=== PATIENT | female | born 1965 | race Caucasian/White ===

== ENCOUNTER 2016-11-14 17:44 | Inpatient (IN) | payer BC ==
[2016-11-14] MEDS ORDERED: Ondansetron 4 MG/2 ML SDV IVPUSH ONE (19:43)
[2016-11-14] MEDS ORDERED: HYDROmorphone 1 MG/ML Syringe IVPUSH ONE ×3 (19:43→23:42)
[2016-11-14] MEDS ORDERED: Sodium Chloride 0.9% 1,000 ML IV SCH (19:45)
--- NOTE | 2016-11-14 20:50 | EDM.PDOC ---
ED HPI GENERAL MEDICAL PROBLEM - General Chief Complaint: Abdominal Pain Stated Complaint: ABDOMINAL PAIN Time Seen by Provider: 11/14/16 19:28 Source of Information: Reports: Patient, RN Notes Reviewed History Limitations: Reports: No Limitations - History of Present Illness INITIAL COMMENTS - FREE TEXT/NARRATIVE: The patient states that she developed right upper quadrant abdominal pain around 11:00 this afternoon, which developed into entire-abdomen pain around 15: 00. She noticed that the pain was radiating to her right scapular area around 18 :00. She describes the pain as sharp. It has been waxing and waning. Initially there were no modifiers, but she later noticed that she felt better if she palpated her right upper quadrant. She has had nausea and vomiting. No urinary symptoms. No fever. No prior similar symptoms. The patient states that she has been constipated for the past 3 days. She took a probiotic yesterday afternoon and again this morning, a few hours before her right upper quadrant abdominal pain began. She also took a laxative last night. She states that she did have a bowel movement this morning, prior to the pain beginning at 11:00. She states that she also took a saline enema this afternoon , after her pain began, but this did not alter her pain. She has not tried any other treatments. The patient does not have a PCP. Abdominal Pain Score (Numeric/FACES): 10 - Related Data Allergies Allergy/AdvReac Type Severity Reaction Status Date / Time No Known Allergies Allergy Verified 11/14/16 17:53 Home Meds: Home Meds . [No Known Home Meds] 11/14/16 [History] Past Medical History Psychiatric History: Reports: Depression - Past Surgical History HEENT Surgical History: Reports: Oral Surgery (Steger teeth extraction) Female Surgical History: Reports: Breast Implant (bilateral) Social & Family History - Family History Family Medical History: Noncontributory - Tobacco Use Smoking Status *Q: Light Tobacco Smoker Years of Tobacco use: 37 Packs/Tins Daily: 0.1 Packs/Tins Daily Comment: down from 1 pack per week - Caffeine Use Caffeine Use: Reports: Coffee, Soda - Alcohol Use Days Per Week of Alcohol Use: 2 Number of Drinks Per Day: 5 Total Drinks Per Week: 10 Alcohol Use Frequency: Daily - Recreational Drug Use Recreational Drug Use: No - Living Situation & Occupation Living situation: Reports: , with Spouse, with Family (1 son) 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) ED ROS GENERAL - Review of Systems Review Of Systems: See Below Constitutional: Reports: No Symptoms HEENT: Reports: No Symptoms Respiratory: Reports: No Symptoms Cardiovascular: Reports: No Symptoms Endocrine: Reports: No Symptoms GI/Abdominal: Reports: Constipation (chronic) : Reports: No Symptoms Musculoskeletal: Reports: No Symptoms Skin: Reports: No Symptoms Neurological: Reports: No Symptoms Psychiatric: Reports: No Symptoms Hematologic/Lymphatic: Reports: No Symptoms Immunologic: Reports: No Symptoms ED EXAM, GI/ABD - Physical Exam Exam: See Below Exam Limited By: No Limitations General Appearance: Alert, WD/WN, Moderate Distress (quite uncomfortable) Eyes: Bilateral: Normal Appearance, EOMI Ears: Normal External Exam, Hearing Grossly Normal Nose: Normal Inspection, No Blood Throat/Mouth: Normal Inspection, Normal Lips, Normal Voice, No Airway Compromise Head: Atraumatic, Normocephalic Neck: Normal Inspection, Full Range of Motion Respiratory/Chest: No Respiratory Distress, Lungs Clear, Normal Breath Sounds, No Accessory Muscle Use Cardiovascular: Normal Peripheral Pulses, Regular Rate, Rhythm, No Gallop, No JVD, No Murmur, No Rub GI/Abdominal Exam: Normal Bowel Sounds, Soft, No Organomegaly, No Distention, No Abnormal Bruit, No Mass, Tender (Generalized, but more tender in the right upper quadrant than elsewhere. Solis sign positive.). No: Guarding, Rebound (Female) Exam: Deferred Back Exam: Normal Inspection, Full Range of Motion, CVA Tenderness (L) ( percussion induces abdominal pain), CVA Tenderness (R) (percussion induces abdominal pain) Extremities: Normal Inspection, Normal Range of Motion, No Pedal Edema, Normal Capillary Refill Neurological: Alert, Oriented, Normal Cognition, No Motor/Sensory Deficits Psychiatric: Normal Affect Skin Exam: Warm, Dry, Intact, Normal Color, No Rash Course - Vital Signs Last Recorded V/S: Last Vital Signs Temp 36.6 C 11/14/16 17:53 Pulse 83 11/14/16 17:53 Resp 19 11/14/16 17:53 BP 134/79 11/14/16 17:53 Pulse Ox 100 11/14/16 17:53 - Orders/Labs/Meds Orders: Active Orders 24 hr Category Date Time Status Abdomen 2V AP Flat Upright [CR] Stat Exams 11/14/16 18:42 Taken Abdomen Ltd [US] Stat Exams 11/14/16 19:46 Taken Abdomen Pelvis w Cont [CT] Stat Exams 11/14/16 19:43 Taken CULTURE URINE [RM] Stat Lab 11/14/16 21:35 Received Sodium Chloride 0.9% [Normal Saline] 1,000 ml Med 11/14/16 19:45 Active IV ASDIRECTED Sodium Chloride 0.9% [Normal Saline] 1,000 ml Med 11/14/16 23:45 Active IV ASDIRECTED Sodium Chloride 0.9% [Saline Flush] Med 11/14/16 21:53 Active 10 ml FLUSH ONETIME PRN Medication Orders Sodium Chloride (Normal Saline) 1,000 mls @ 150 mls/hr IV ASDIRECTED NAOMY Last Admin: 11/14/16 19:56 Dose: 150 mls/hr Sodium Chloride (Normal Saline) 1,000 mls @ 100 mls/hr IV ASDIRECTED NAOMY Sodium Chloride (Saline Flush) 10 ml FLUSH ONETIME PRN PRN Reason: IV FLUSH Last Admin: 11/14/16 22:22 Dose: 10 ml Labs: Laboratory Tests 11/14/16 11/14/16 11/14/16 Range/Units 18:45 18:45 21:35 WBC 7.98 (3.98-10.04) K/mm3 RBC 4.51 (3.98-5.22) M/mm3 Hgb 14.3 (11.2-15.7) gm/L Hct 41.9 (34.1-44.9) % MCV 92.9 (79.4-94.8) fl MCH 31.7 (25.6-32.2) pg MCHC 34.1 (32.2-35.5) g/dl RDW Std Deviation 42.6 (36.4-46.3) fL Plt Count 217 (182-369) K/mm3 MPV 11.4 (9.4-12.3) fl Neutrophils % (Manual) 86 H (40-60) % Band Neutrophils % 0 (0-10) % Lymphocytes % (Manual) 13 L (20-40) % Atypical Lymphs % 0 % Monocytes % (Manual) 1 L (2-10) % Eosinophils % (Manual) 0 L (0.7-5.8) % Basophils % (Manual) 0 L (0.1-1.2) Platelet Estimate Adequate RBC Morph Comment Normal Sodium 139 (136-145) mEq/L Potassium 4.3 (3.5-5.1) mEq/L Chloride 105 (98-107) mEq/L Carbon Dioxide 26 (21-32) mEq/L Anion Gap 12.3 (5-15) BUN 10 (7-18) mg/dL Creatinine 0.7 (0.55-1.02) mg/dL Est Cr Clr Drug Dosing 89.01 mL/min Estimated GFR (MDRD) > 60 (>60) mL/min BUN/Creatinine Ratio 14.3 (14-18) Glucose 104 (74-106) mg/dL Calcium 9.2 (8.5-10.1) mg/dL Total Bilirubin 0.4 (0.2-1.0) mg/dL AST 21 (15-37) U/L ALT 24 (14-59) U/L Alkaline Phosphatase 76 (46-116) U/L Total Protein 7.3 (6.4-8.2) g/dl Albumin 3.8 (3.4-5.0) g/dl Globulin 3.5 gm/dL Albumin/Globulin Ratio 1.1 (1-2) Lipase 109 (73-393) U/L Urine Color (Yellow) Urine Appearance (Clear) Urine pH (5.0-8.0) Ur Specific [place] (1.005-1.030) Urine Protein (Negative) Urine Glucose (UA) (Negative) Urine Ketones (Negative) Urine Occult Blood (Negative) Urine Nitrite (Negative) Urine Bilirubin (Negative) Urine Urobilinogen (0.2-1.0) Ur Leukocyte Esterase (Negative) Urine RBC (0-5) /hpf Urine WBC (0-5) /hpf Ur Epithelial Cells (0-5) /hpf Urine Bacteria (FEW) /hpf Urine Mucus (FEW) /hpf Urine HCG, Qual Negative (NEGATIVE) 11/14/16 Range/Units 21:35 WBC (3.98-10.04) K/mm3 RBC (3.98-5.22) M/mm3 Hgb (11.2-15.7) gm/L Hct (34.1-44.9) % MCV (79.4-94.8) fl MCH (25.6-32.2) pg MCHC (32.2-35.5) g/dl RDW Std Deviation (36.4-46.3) fL Plt Count (182-369) K/mm3 MPV (9.4-12.3) fl Neutrophils % (Manual) (40-60) % Band Neutrophils % (0-10) % Lymphocytes % (Manual) (20-40) % Atypical Lymphs % % Monocytes % (Manual) (2-10) % Eosinophils % (Manual) (0.7-5.8) % Basophils % (Manual) (0.1-1.2) Platelet Estimate RBC Morph Comment Sodium (136-145) mEq/L Potassium (3.5-5.1) mEq/L Chloride (98-107) mEq/L Carbon Dioxide (21-32) mEq/L Anion Gap (5-15) BUN (7-18) mg/dL Creatinine (0.55-1.02) mg/dL Est Cr Clr Drug Dosing mL/min Estimated GFR (MDRD) (>60) mL/min BUN/Creatinine Ratio (14-18) Glucose (74-106) mg/dL Calcium (8.5-10.1) mg/dL Total Bilirubin (0.2-1.0) mg/dL AST (15-37) U/L ALT (14-59) U/L Alkaline Phosphatase (46-116) U/L Total Protein (6.4-8.2) g/dl Albumin (3.4-5.0) g/dl Globulin gm/dL Albumin/Globulin Ratio (1-2) Lipase (73-393) U/L Urine Color Yellow (Yellow) Urine Appearance Clear (Clear) Urine pH 7.5 (5.0-8.0) Ur Specific [place] 1.025 (1.005-1.030) Urine Protein 1+ H (Negative) Urine Glucose (UA) Negative (Negative) Urine Ketones 2+ H (Negative) Urine Occult Blood Trace-intact H (Negative) Urine Nitrite Negative (Negative) Urine Bilirubin Negative (Negative) Urine Urobilinogen 0.2 (0.2-1.0) Ur Leukocyte Esterase Trace H (Negative) Urine RBC 0-5 (0-5) /hpf Urine WBC 10-20 H (0-5) /hpf Ur Epithelial Cells 5-10 H (0-5) /hpf Urine Bacteria Few (FEW) /hpf Urine Mucus Few (FEW) /hpf Urine HCG, Qual (NEGATIVE) Meds: Medications Generic Name Dose Route Start Last Admin Trade Name Freq PRN Reason Stop Dose Admin Sodium Chloride 1,000 mls @ 150 mls/hr 11/14/16 19:45 11/14/16 19:56 Normal Saline IV 150 mls/hr ASDIRECTED NAOMY Administration Sodium Chloride 1,000 mls @ 100 mls/hr 11/14/16 23:45 Normal Saline IV ASDIRECTED NAOMY Sodium Chloride 10 ml 11/14/16 21:53 11/14/16 22:22 Saline Flush FLUSH 10 ml ONETIME PRN Administration IV FLUSH Discontinued Medications Generic Name Dose Route Start Last Admin Trade Name Spq PRN Reason Stop Dose Admin Diatrizoate Meglum/Diatrizoate Sod 90 ml 11/14/16 21:53 11/14/16 22:21 Gastrografin 37% PO 11/14/16 21:54 90 ml ONETIME ONE Administration Hydromorphone HCl 1 mg 11/14/16 19:43 11/14/16 19:58 Dilaudid IVPUSH 11/14/16 19:44 1 mg ONETIME ONE Administration Hydromorphone HCl 1 mg 11/14/16 21:45 11/14/16 21:50 Dilaudid IVPUSH 11/14/16 21:46 1 mg ONETIME ONE Administration Hydromorphone HCl 1 mg 11/14/16 23:42 11/14/16 23:48 Dilaudid IVPUSH 11/14/16 23:43 1 mg ONETIME ONE Administration Cefoxitin Sodium 2 gm/ Premix 50 mls @ 100 mls/hr 11/14/16 23:42 11/14/16 23: 50 IV 11/15/16 00:11 100 mls/hr ONETIME ONE Administration Iopamidol 120 ml 11/14/16 21:53 11/14/16 22:21 Isovue-300 (61%) IVPUSH 11/14/16 21:54 125 ml ONETIME ONE Administration Ondansetron HCl 4 mg 11/14/16 19:43 11/14/16 19:57 Zofran IVPUSH 11/14/16 19:44 4 mg ONETIME ONE Administration - Re-Assessments/Exams Free Text/Narrative Re-Assessment/Exam: 11/14/16 20:49 2 view radiographs of the abdomen, upright, appears to demonstrate a nonspecific bowel gas pattern. No free air. An IUD is noted tilting to the right. No other abnormality identified. Formal read per the radiologist pending. 11/14/16 21:48 Ultrasound of the right upper quadrant is read by [facility] as "No acute findings." Specifically, they indicate: Gallbladder: Unremarkable. No gallstones. Common bile duct: Unremarkable as visualized. No stones. No dilation. 11/14/16 22:21 A urine by [facility] had been ordered, however, the patient provided a clean catch. It is remarkable for 10-20 WBCs, few bacteria, 5-10 epithelial cells, trace leukocyte esterase, and nitrite negative. Clinically, I do not suspect a UTI, however, this is urinalysis is indeterminate. I have ordered a urine culture, but I am not going to start the patient on an antibiotic based on this finding alone. The CT scan of the abdomen and pelvis is still pending. 11/14/16 23:04 CT of the abdomen and pelvis with oral and IV contrast is read by [facility] as: Lower thorax: 6 mm circumscribed right lower lobe pulmonary nodule. Visualized portion of the patient's right breast implant appears collapsed. IMPRESSION: 1. Fibroid uterus 2. The patient's cecum is gas-filled and in a epigastric location and the cecal tip projecting towards the left upper quadrant, but at this time there is no evidence of volvulus or bascule. 3. 6 mm circumscribed right lower lobe pulmonary nodule. 4. Findings suspicious for right breast implant rupture but the implant is not entirely visualized on this study. 5. Hepatic and renal cysts. 11/14/16 23:18 The above was discussed with the patient. She states that her breast implants placed approximately 10 years ago, in [place]. She noticed right breast deflation approximately 3-4 weeks ago, and saw a plastic surgeon in [place] about that time. The plastic surgeon recommended removal of both implants with a breast lift, versus replacing both. She was informed that there was no gates to make a decision. Leakage from a saline breast implant does not cause significant issues, as the saline is absorbed by the body. This would indicate that the patient's pain is not related to the breast implant deflation. I am more concerned about the epigastric location of the cecum. 11/14/16 23:[address] Roberts at 23:23. He is recommending that we admit the patient under his care. The patient may receive pain medication and Zofran as needed. He would like the patient to receive Mefoxin 2 g Q6 hrs, and an upright abdominal film in the morning. 11/14/16 23:39 The above plan was discussed with the patient. She is agreeable to being admitted. I will write bridge orders. Departure - Departure Time of Disposition: 23:39 Disposition: Admitted As Inpatient 66 Condition: Fair Clinical Impression: Abdominal pain of unknown etiology - Discharge Information - My Orders Last 24 Hours: My Active Orders 11/14/16 19:43 Abdomen Pelvis w Cont [CT] Stat 11/14/16 19:45 Sodium Chloride 0.9% [Normal Saline] 1,000 ml IV ASDIRECTED 11/14/16 19:46 Abdomen Ltd [US] Stat 11/14/16 21:35 CULTURE URINE [RM] Stat 11/14/16 21:53 Sodium Chloride 0.9% [Saline Flush] 10 ml FLUSH ONETIME PRN 11/14/16 23:45 Sodium Chloride 0.9% [Normal Saline] 1,000 ml IV ASDIRECTED - Assessment/Plan Last 24 Hours: My Active Orders 11/14/16 19:43 Abdomen Pelvis w Cont [CT] Stat 11/14/16 19:45 Sodium Chloride 0.9% [Normal Saline] 1,000 ml IV ASDIRECTED 11/14/16 19:46 Abdomen Ltd [US] Stat 11/14/16 21:35 CULTURE URINE [RM] Stat 11/14/16 21:53 Sodium Chloride 0.9% [Saline Flush] 10 ml FLUSH ONETIME PRN 11/14/16 23:45 Sodium Chloride 0.9% [Normal Saline] 1,000 ml IV ASDIRECTED
[2016-11-14] MEDS ORDERED: Sodium Chloride 0.9% 10 ML Syringe FLUSH PRN (21:53)
[2016-11-14] MEDS ORDERED: Iopamidol 612 MG/ML 150 ML Bottle IVPUSH ONE (21:53)
[2016-11-14] MEDS ORDERED: Diatrizoate Meglumine/Diatrizoate Sodium 37% 120 ML Bottle PO ONE (21:53)
[2016-11-14] MEDS ORDERED: cefOXitin 2 GM in Premix Bag 1 BAG IV ONE (23:42)
[2016-11-15] MEDS ORDERED: HYDROmorphone 1 MG/ML Syringe ONE (00:54)
[2016-11-15] MEDS: Sodium Chloride 0.9% 1,000 ML IV SCH ×2 (00:59→05:07)
[2016-11-15] MEDS ORDERED: Ondansetron 4 MG/2 ML SDV IVPUSH PRN (01:23)
[2016-11-15] MEDS ORDERED: cefOXitin 2 GM in Sodium Chloride 0.9% 100 ML IV SCH (06:00)
[2016-11-15] MEDS: cefOXitin 2 GM in Premix Bag 1 BAG IV SCH ×4 (06:12→23:56)
[2016-11-15] MEDS: HYDROmorphone 1 MG/ML Syringe IVPUSH PRN ×8 (06:30→23:00)
[2016-11-15] MEDS ORDERED: FLU Vacc QS 2017-18 (6mos UP)/PF 60 MCG/0.5 ML Syringe IM ONE (09:00)
--- NOTE | 2016-11-15 10:31 | PCM.HP ---
H&P History of Present Illness - General Date of Service: 11/15/16 Admit Problem/Dx: Admission Diagnosis/Problem Admission Diagnosis/Problem Abdominal pain of unknown etiology Source of Information: Patient - History of Present Illness Initial Comments - Free Text/Narative: 51-year-old female with a history of constipation complained of right upper quadrant sharp shooting abdominal pain beginning yesterday. It became generalized abdominal discomfort. She did have bowel movements after laxatives and enemas which helped somewhat. She had no nausea no vomiting. Because of the severe discomfort she presented to the emergency room last night where an ultrasound of her right upper quadrant was performed and was remarkable for gallstones but no acute changes. CT scan of her abdomen showed no imaging features consistent with appendicitis. She was admitted for observation and pain management on IV antibiotics. Abdominal Pain Score (Numeric/FACES): 8 - Related Data Allergies/Adverse Reactions: Allergies Allergy/AdvReac Type Severity Reaction Status Date / Time No Known Allergies Allergy Verified 11/15/16 02:08 Home Medications: Home Meds . 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 per ct report rodney pt has the right breast implant that has ruptured. pt states has seen a plastic surgeon and needs to have removed however has not done yet. 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 Exam - Exam Exam: See Below - Vital Signs Vital Signs: Last Vital Signs Temp 36.8 C 11/15/16 08:25 Pulse 70 11/15/16 08:25 Resp 16 11/15/16 08:25 BP 114/88 11/15/16 08:25 Pulse Ox 92 L 11/15/16 08:25 Weight: 82.191 kg - Exam General: Alert, Oriented, Cooperative Neck: Supple Lungs: Normal Respiratory Effort Cardiovascular: Regular Rate, Regular Rhythm GI/Abdominal Exam: Distended (Mild to moderate but no focal areas of tenderness. Specifically the right lower quadrant at McBurney's point is negative for tenderness.) (Female) Exam: Deferred Rectal (Female) Exam: Deferred Extremities: Normal Range of Motion Skin: Warm, Dry, Intact Neuro Extensive - Mental Status: Alert, Oriented x3, Normal Mood/Affect, Normal Cognition Psychiatric: Alert, Normal Affect - Patient Data Result Diagrams: 11/14/16 18:45 11/14/16 18:45 *Q Meaningful Use (ADM) - VTE *Q VTE Criteria *Q: - Stroke *Q Stroke Criteria *Q: - AMI *Q AMI Criteria *Q: Problem List Initiated/Reviewed/Updated: Yes Orders Last 24hrs: Active Orders 24 hr Category Date Time Status Admission Status [Patient Status] [ADT] Routine ADT 11/15/16 00:10 Active Up ad Vivien [RC] ASDIRECTED Care 11/15/16 01:21 Active NPO Now [Nothing per Oral Now Diet] [DIET] Diet 11/15/16 Breakfast Active Abdomen 2V AP Flat Upright [CR] Exams 11/15/16 08:00 Taken HYDROmorphone [Dilaudid] Med 11/15/16 01:21 Active 1 mg IVPUSH Q2H PRN Ondansetron [Zofran] Med 11/15/16 01:23 Active 4 mg IVPUSH Q6H PRN cefOXitin [Mefoxin in Dextrose,Iso-Osm 2 GM/50 ML] 2 gm Med 11/15/16 06:00 Active Premix Bag 1 bag IV Q6H Code Status [Resuscitation Status] Routine Resus Stat 11/15/16 01:20 Ordered Medication Orders Hydromorphone HCl (Dilaudid) 1 mg IVPUSH Q2H PRN PRN Reason: pain Last Admin: 11/15/16 09:12 Dose: 1 mg Admin: 11/15/16 06:30 Dose: 1 mg Sodium Chloride (Normal Saline) 1,000 mls @ 100 mls/hr IV ASDIRECTED [facility] Last Infusion: 11/15/16 05:07 Dose: 100 mls/hr Admin: 11/15/16 00:59 Dose: 100 mls/hr Cefoxitin Sodium 2 gm/ Premix 50 mls @ 100 mls/hr IV Q6H NAOMY Last Admin: 11/15/16 06:12 Dose: 100 mls/hr Ondansetron HCl (Zofran) 4 mg IVPUSH Q6H PRN PRN Reason: Nausea Sodium Chloride (Saline Flush) 10 ml FLUSH ONETIME PRN PRN Reason: IV FLUSH Last Admin: 11/14/16 22:22 Dose: 10 ml Assessment/Plan Comment:: imp: Chronic constipation associated with intermittent generalized abdominal pain. Large uterine fibroid. This morning's x-ray shows contrast through the colon and entering the rectum strongly suggesting no evidence of obstruction and more specifically secondary to a cecal volvulus or bascule. Clinically she feels much better although she still has discomfort generally. She's hungry and wants to eat. plan: I will continue with the current plan of IV antibiotics and observation. I will repeat her white blood cell count in the morning. I'll start a full liquid diet today. I'll add a Dulcolax suppository as well.
[2016-11-15] MEDS ORDERED: Bisacodyl 10 MG Supp RECTAL ONE (10:32)
[2016-11-15] MEDS ORDERED: Sodium Chloride 0.9% 1,000 ML IV SCH (12:30)
[2016-11-16] MEDS: HYDROmorphone 1 MG/ML Syringe IVPUSH PRN ×2 (02:25→05:19)
[2016-11-16] MEDS ORDERED: Acetaminophen 325 MG Tab PO PRN (03:09)
[2016-11-16] MEDS: cefOXitin 2 GM in Premix Bag 1 BAG IV SCH ×2 (06:06→11:20)
[2016-11-16] MEDS ORDERED: Diphtheria,Pertussis(Acell),Tetanus Vaccine 0.5 ML SDV IM ONE (08:00)
[2016-11-16] MEDS ORDERED: Ketorolac 30 MG/ML SDV IVPUSH ONE (08:30)
--- NOTE | 2016-11-16 08:59 | PCM.PN ---
- General Info Date of Service: 11/16/16 Functional Status: Reports: Pain Controlled, Tolerating Diet, Ambulating, Urinating - Review of Systems HEENT: Reports: Headaches (She's having frequent havoc. She had been requesting Dilaudid for the headaches. She normally takes Goody powder at home for these headaches.) Gastrointestinal: Reports: No Symptoms - Patient Data Vitals - Most Recent: Last Vital Signs Temp 36.5 C 11/16/16 08:23 Pulse 80 11/16/16 08:23 Resp 18 11/16/16 08:23 BP 101/71 11/16/16 08:23 Pulse Ox 94 L 11/16/16 08:23 Weight - Most Recent: 84.822 kg I&O - Last 24 Hours: Intake & Output 11/15/16 11/16/16 11/16/16 22:59 06:59 14:59 Intake Total 2400 1501 Output Total 700 200 Balance 1700 1301 Lab Results Last 24 Hours: Laboratory Results - last 24 hr 11/16/16 Range/Units 05:45 WBC 8.45 (3.98-10.04) K/mm3 RBC 4.17 (3.98-5.22) M/mm3 Hgb 13.1 (11.2-15.7) gm/L Hct 39.6 (34.1-44.9) % MCV 95.0 H (79.4-94.8) fl MCH 31.4 (25.6-32.2) pg MCHC 33.1 (32.2-35.5) g/dl RDW Std Deviation 43.9 (36.4-46.3) fL Plt Count 196 (182-369) K/mm3 MPV 11.3 (9.4-12.3) fl Neut % (Auto) 71.5 H (34.0-71.1) % Lymph % (Auto) 18.8 L (19.3-51.7) % [place] % (Auto) 7.5 (4.7-12.5) % Eos % (Auto) 1.9 (0.7-5.8) Baso % (Auto) 0.2 (0.1-1.2) % Neut # (Auto) 6.04 (1.56-6.13) K/mm3 Lymph # (Auto) 1.59 (1.18-3.74) K/mm3 [place] # (Auto) 0.63 H (0.24-0.36) K/mm3 Eos # (Auto) 0.16 (0.04-0.36) K/mm3 Baso # (Auto) 0.02 (0.01-0.08) K/mm3 Med Orders - Current: Current Medications Acetaminophen (Tylenol) 650 mg PO Q4H PRN PRN Reason: Pain (mild 1-3) Last Admin: 11/16/16 05:03 Dose: 650 mg Hydromorphone HCl (Dilaudid) 1 mg IVPUSH Q2H PRN PRN Reason: pain Last Admin: 11/16/16 05:19 Dose: 1 mg Cefoxitin Sodium 2 gm/ Premix 50 mls @ 100 mls/hr IV Q6H [facility] Last Admin: 11/16/16 06:06 Dose: 100 mls/hr Sodium Chloride (Normal Saline) 1,000 mls @ 40 mls/hr IV ASDIRECTED [facility] Last Admin: 11/15/16 22:18 Dose: 40 mls/hr Ondansetron HCl (Zofran) 4 mg IVPUSH Q6H PRN PRN Reason: Nausea Last Admin: 11/15/16 16:49 Dose: 4 mg Sodium Chloride (Saline Flush) 10 ml FLUSH ONETIME PRN PRN Reason: IV FLUSH Last Admin: 11/14/16 22:22 Dose: 10 ml Discontinued Medications Bisacodyl (Dulcolax) 10 mg RECTAL ONETIME ONE Stop: 11/15/16 10:33 Last Admin: 11/15/16 11:31 Dose: 10 mg Diatrizoate Meglum/Diatrizoate Sod (Gastrografin 37%) 90 ml PO ONETIME ONE Stop: 11/14/16 21:54 Last Admin: 11/14/16 22:21 Dose: 90 ml Diphtheria/Tetanus/Acell Pertussis (Adacel) 0.5 ml IM .ONCE ONE Stop: 11/16/16 08:01 Hydromorphone HCl (Dilaudid) 1 mg IVPUSH ONETIME ONE Stop: 11/14/16 19:44 Last Admin: 11/14/16 19:58 Dose: 1 mg Hydromorphone HCl (Dilaudid) 1 mg IVPUSH ONETIME ONE Stop: 11/14/16 21:46 Last Admin: 11/14/16 21:50 Dose: 1 mg Hydromorphone HCl (Dilaudid) 1 mg IVPUSH ONETIME ONE Stop: 11/14/16 23:43 Last Admin: 11/14/16 23:48 Dose: 1 mg Hydromorphone HCl (Dilaudid) Confirm Administered Dose 1 mg .ROUTE .STK-MED ONE Stop: 11/15/16 00:55 Last Admin: 11/15/16 00:55 Dose: 1 mg Sodium Chloride (Normal Saline) 1,000 mls @ 150 mls/hr IV ASDIRECTED [facility] Last Admin: 11/14/16 19:56 Dose: 150 mls/hr Cefoxitin Sodium 2 gm/ Premix 50 mls @ 100 mls/hr IV ONETIME ONE Stop: 11/15/16 00:11 Last Admin: 11/14/16 23:50 Dose: 100 mls/hr Sodium Chloride (Normal Saline) 1,000 mls @ 40 mls/hr IV ASDIRECTED [facility] Last Infusion: 11/15/16 05:07 Dose: Infused Influenza Virus Vaccine (Pharmacy To Dose - Influenza Vaccine) 1 each IM ONETIME ONE Stop: 11/15/16 03:00 Last Admin: 11/15/16 14:31 Dose: Not Given Influenza Virus Vaccine (Flulaval Quad [id number]) 60 mcg IM .ONCE ONE Stop: 11/15/16 09:01 Iopamidol (Isovue-300 (61%)) 120 ml IVPUSH ONETIME ONE Stop: 11/14/16 21:54 Last Admin: 11/14/16 22:21 Dose: 125 ml Ketorolac Tromethamine (Toradol) 30 mg IVPUSH ONETIME ONE Stop: 11/16/16 08:31 Last Admin: 11/16/16 08:27 Dose: 30 mg Ondansetron HCl (Zofran) 4 mg IVPUSH ONETIME ONE Stop: 11/14/16 19:44 Last Admin: 11/14/16 19:57 Dose: 4 mg - Exam GI/Abdominal Exam: Soft, Non-Tender - Problem List Review Problem List Initiated/Reviewed/Updated: Yes - My Orders Last 24 Hours: My Active Orders 11/15/16 08:00 Abdomen 2V AP Flat Upright [CR] 10/08/17 10:32 May Shower [RC] ASDIRECTED 11/15/16 12:30 Sodium Chloride 0.9% [Normal Saline] 1,000 ml IV ASDIRECTED 11/15/16 20:05 Vaccines to be Administered [RC] .discharge 11/15/16 Lunch Full Liquid Diet [DIET] 11/16/16 03:09 Acetaminophen [Tylenol] 650 mg PO Q4H PRN 11/16/16 Lunch Regular Diet [DIET] - Assessment Assessment:: imp: Possible etiologies for her abdominal discomfort are fecal enterocolitis which is now resolved with laxatives. Possible gastroenteritis although she didn 't have significant stools. She is passing gas and she says her stools are watery. She tolerated her diet fully and is eager to try a regular lunch for diet. - Plan Plan:: If she tolerates a regular diet I plan discharge this afternoon. In the meantime I'll give her Toradol for her headache. Stool evaluation. If discharged she can follow-up with her primary care provider.
--- NOTE | 2016-11-16 10:25 | CT ---
CT abdomen and pelvis Technique: Multiple axial sections were obtained from above the dome of the diaphragm inferiorly through the pubic symphysis. Intravenous and oral contrast has been given. Delayed images were also obtained through the abdomen and pelvis. Comparison: Previous abdominal x-ray and abdominal ultrasound performed on the same day. Findings: Nodule is identified within the right lung base in a subpleural location measuring about 7 mm. Small subpleural nodule is noted within the right middle lobe measuring about 3 mm which was incompletely included on this exam. Minimal dependent atelectasis is seen. Right breast prosthesis is partially seen which appears to be collapsed. Left breast prosthesis is noted which is incompletely seen but appears more normal in appearance. Multiple cysts are seen within the liver. Largest cyst located within the left lobe measuring approximately 3.0 cm. Spleen appears within normal limits. Adrenal glands show no nodule. Multiple cysts are seen within the kidneys. Largest renal cyst measures approximately 1.8 cm. No hydronephrosis or abnormal calcifications seen within the kidneys. Delayed images show contrast excretion into the ureters and bladder. Small hiatal hernia is seen. Contrast reflux into the distal esophagus is noted. Pancreas appears within normal limits. Aorta shows no aneurysmal dilatation. No retroperitoneal adenopathy is seen. Uterus is enlarged which appears to be due to a fundal fibroid measuring approximately 7 cm in size. Several calcifications seen within the cervix. IUD present within the uterus. Bone window settings were reviewed which show disc space narrowing and vacuum phenomenon within the L5-S1 disc. Minimal disc space narrowing and minimal vacuum phenomena seen within the L4-L5 disc. Cecum appears within the upper abdomen with tip of the cecum being pointed to the left side. Impression: 1. Two subpleural nodules within the right lung base with largest measuring 7 mm. If patient is a smoker recommend repeat noncontrast chest CT in 6 months. If patient is not a smoker, recommend follow-up noncontrast chest CT in one year. 2. 7 cm uterine fibroid. 3. Cysts within the liver and within the kidneys. 4. Partially visualized right breast prosthesis which appears to be collapsed. 5. Slightly abnormal position of the cecum within the upper abdomen. This is most likely due to mobile cecum but please exclude any symptoms of cecal bascule Diagnostic code #3 Agree with preliminary report issued by [email or web address] ([facility] preliminary report dictated on 11/14/16, 11:48 PM Central Time)
--- NOTE | 2016-11-16 10:25 | US ---
Limited abdominal ultrasound: Multiple real-time images of the upper right abdomen were obtained. Comparison: No prior ultrasound exam. Findings: Gallbladder shows no gallstones. No gallbladder wall thickening or biliary duct dilatation is seen. 3.0 cm abnormality is identified within the left lobe of the liver compatible with cyst. No other focal abnormality is identified within the liver. Visualized portions of the pancreas appear within normal limits. Right kidney shows no hydronephrosis with small inferior parapelvic cyst being seen measuring 1.1 cm. Impression: 1. Cyst within the left lobe of the liver as well as small renal cysts. 2. No additional abnormality is identified on right upper quadrant abdominal ultrasound. Diagnostic code #2 I agree with preliminary report issued by [employer] ([facility] preliminary report dictated on 11/14/16, 10:34 PM Central Time)
--- NOTE | 2016-11-16 10:25 | CR ---
Abdomen: Supine and upright views of the abdomen were obtained. Comparison: Prior abdominal x-ray of 11/14/16. Contrast seen within the bladder and within the colon from prior CT exam. Numerous air-fluid levels are seen within the colon which are likely incidental if patient has no symptoms of diarrhea. No free air is seen. Bony structures are unremarkable. Impression: 1. Contrast within bladder and colon. This is compatible with recent CT exam. 2. Air-fluid levels within the colon likely incidental if patient has no symptoms of diarrhea. Diagnostic code #2
--- NOTE | 2016-11-16 10:25 | CR ---
Abdomen: Supine and upright views of the abdomen were obtained. Bowel gas pattern appears within normal limits. Calcifications are seen within the pelvis compatible with phleboliths. IUD is present within the pelvis. Bony structures are within normal limits for the patient's age. Impression: 1. Incidental findings. Nothing acute is appreciated. Diagnostic code #2
[2016-11-16 12:51] VITALS: BP 121/54
--- NOTE | 2016-11-19 08:04 | PCM.DCSUM1 ---
Discharge Summary - Hospital Course Free Text/Narrative:: Uneventful. Patient had her chronic headache discomfort which was relieved with Goody powder brought from home. - Discharge Data Discharge Date: 11/16/16 Discharge Disposition: Home, Self-Care 01 Condition: Good - Discharge Diagnosis/Problem(s) (1) Abdominal pain of unknown etiology SNOMED Code(s): 870826478 ICD Code: R10.9 - UNSPECIFIED ABDOMINAL PAIN Status: Resolved Priority: Low - Patient Instructions Diet: Heart Healthy Diet Activity: As Tolerated, Rest and Relax Today Driving: May Drive Today Showering/Bathing: May Shower Notify Provider of: Fever, Increased Pain, Nausea and/or Vomiting Other/Special Instructions: As we discussed, please contact your primary care provider for follow-up. - Discharge Plan Home Medications: Home Meds . [No Known Home Meds] 11/14/16 [History] Patient Handouts: Abdominal Pain, Adult - Discharge Summary/Plan Comment DC Time >30 min.: No Discharge Summary/Plan Comment: Follow-up with her primary care provider. - Patient Data Vitals - Most Recent: Last Vital Signs Temp 36.9 C 11/16/16 12:48 Pulse 87 11/16/16 12:48 Resp 16 11/16/16 12:48 BP 121/54 L 11/16/16 12:48 Pulse Ox 100 11/16/16 12:48 Weight - Most Recent: 84.822 kg Med Orders - Current: Current Medications Discontinued Medications Acetaminophen (Tylenol) 650 mg PO Q4H PRN PRN Reason: Pain (mild 1-3) Last Admin: 11/16/16 05:03 Dose: 650 mg Bisacodyl (Dulcolax) 10 mg RECTAL ONETIME ONE Stop: 11/15/16 10:33 Last Admin: 11/15/16 11:31 Dose: 10 mg Diatrizoate Meglum/Diatrizoate Sod (Gastrografin 37%) 90 ml PO ONETIME ONE Stop: 11/14/16 21:54 Last Admin: 11/14/16 22:21 Dose: 90 ml Diphtheria/Tetanus/Acell Pertussis (Adacel) 0.5 ml IM .ONCE ONE Stop: 11/16/16 08:01 Last Admin: 11/16/16 13:04 Dose: 0.5 ml Hydromorphone HCl (Dilaudid) 1 mg IVPUSH ONETIME ONE Stop: 11/14/16 19:44 Last Admin: 11/14/16 19:58 Dose: 1 mg Hydromorphone HCl (Dilaudid) 1 mg IVPUSH ONETIME ONE Stop: 11/14/16 21:46 Last Admin: 11/14/16 21:50 Dose: 1 mg Hydromorphone HCl (Dilaudid) 1 mg IVPUSH ONETIME ONE Stop: 11/14/16 23:43 Last Admin: 11/14/16 23:48 Dose: 1 mg Hydromorphone HCl (Dilaudid) Confirm Administered Dose 1 mg .ROUTE .STK-MED ONE Stop: 11/15/16 00:55 Last Admin: 11/15/16 00:55 Dose: 1 mg Hydromorphone HCl (Dilaudid) 1 mg IVPUSH Q2H PRN PRN Reason: pain Last Admin: 11/16/16 05:19 Dose: 1 mg Sodium Chloride (Normal Saline) 1,000 mls @ 150 mls/hr IV ASDIRECTED [facility] Last Admin: 11/14/16 19:56 Dose: 150 mls/hr Cefoxitin Sodium 2 gm/ Premix 50 mls @ 100 mls/hr IV ONETIME ONE Stop: 11/15/16 00:11 Last Admin: 11/14/16 23:50 Dose: 100 mls/hr Sodium Chloride (Normal Saline) 1,000 mls @ 40 mls/hr IV ASDIRECTED [facility] Last Infusion: 11/15/16 05:07 Dose: Infused Cefoxitin Sodium 2 gm/ Premix 50 mls @ 100 mls/hr IV Q6H [facility] Last Admin: 11/16/16 11:20 Dose: 100 mls/hr Sodium Chloride (Normal Saline) 1,000 mls @ 40 mls/hr IV ASDIRECTED [facility] Last Admin: 11/15/16 22:18 Dose: 40 mls/hr Influenza Virus Vaccine (Pharmacy To Dose - Influenza Vaccine) 1 each IM ONETIME ONE Stop: 11/15/16 03:00 Last Admin: 11/15/16 14:31 Dose: Not Given Influenza Virus Vaccine (Flulaval Quad [id number]) 60 mcg IM .ONCE ONE Stop: 11/15/16 09:01 Last Admin: 11/16/16 13:11 Dose: 60 mcg Iopamidol (Isovue-300 (61%)) 120 ml IVPUSH ONETIME ONE Stop: 11/14/16 21:54 Last Admin: 11/14/16 22:21 Dose: 125 ml Ketorolac Tromethamine (Toradol) 30 mg IVPUSH ONETIME ONE Stop: 11/16/16 08:31 Last Admin: 11/16/16 08:27 Dose: 30 mg Ondansetron HCl (Zofran) 4 mg IVPUSH ONETIME ONE Stop: 11/14/16 19:44 Last Admin: 11/14/16 19:57 Dose: 4 mg Ondansetron HCl (Zofran) 4 mg IVPUSH Q6H PRN PRN Reason: Nausea Last Admin: 11/15/16 16:49 Dose: 4 mg Sodium Chloride (Saline Flush) 10 ml FLUSH ONETIME PRN PRN Reason: IV FLUSH Last Admin: 11/14/16 22:22 Dose: 10 ml *Q Meaningful Use (DIS) - VTE *Q VTE Criteria *Q: - Stroke *Q Stroke Criteria *Q: - AMI *Q AMI Criteria *Q:
== END 2016-11-16 13:45 | disposition home or self-care (01) | DRG 251 ==
LOC: EDSEX 17:44 → JD.ED 17:44 → JD.MS 23:52
PROVIDERS: ADMIT Surgery; ATTEND Surgery
DX: R10.84 Generalized abdominal pain (principal); R51 Headache; K59.09 Other constipation; F32.9 Major depressive disorder, single episode, unspecified; D25.9 Leiomyoma of uterus, unspecified; Z87.891 Personal history of nicotine dependence
CPT/HCPCS: 36415; 74020; 74020-26; 74177; 74177-26; 76705; 76705-26; 80053; 81001; 81025; 83690; 85025; 87086; 90686; 90715; 96361; 96365; 96375; 96376; 99285; 99285-25; A9270-GY; G0008; J0694; J1170; J1885; J2405; J7040; J7050; Q9963; Q9967

== ENCOUNTER 2018-07-05 16:52 | Emergency (ER) | payer BC ==
[2018-07-05 17:09] VITALS: BP 143/85
--- NOTE | 2018-07-05 17:56 | EDM.PDOC ---
ED HPI GENERAL MEDICAL PROBLEM - General Chief Complaint: Chest Pain Stated Complaint: NUMBNESS IN LEFT ARM,CHEST PAIN Time Seen by Provider: 07/05/18 17:15 Source of Information: Reports: Patient History Limitations: Reports: No Limitations - History of Present Illness INITIAL COMMENTS - FREE TEXT/NARRATIVE: 52-year-old female presents to [place] and she is chest pain and left shoulder and arm pain for the past 6 days. She reports the pain starts in the left breast wall and moves into her back. She reports that for the past 2 weeks she' s had left arm pain that she thinks is musculoskeletal in nature. Patient did report that she had flown to [place] 18 days ago. She does become short of breath when she walks up stairs. She reports that she's been otherwise healthy. She doesn't take any medications on a regular basis. She does admit to having breast implants with the right implant ruptured with saline 2 months ago. She denies any fever or chills. Onset Date: 06/29/18 Onset Time: 16:00 Duration: Getting Worse, Intermittent Location: Reports: Chest, Upper Extremity, Left Quality: Reports: Ache Severity: Mild Improves with: Reports: None Worsens with: Reports: None Associated Symptoms: Reports: Chest Pain, Shortness of Breath. Denies: Cough, Fever/Chills, Nausea/Vomiting Treatments SEAFOOD PACKER: Reports: NSAIDS Other Treatments SEAFOOD PACKER: aleve Chest Pain Score (Numeric/FACES): 7 - Related Data Allergies Allergy/AdvReac Type Severity Reaction Status Date / Time No Known Allergies Allergy Verified 07/05/18 17:09 Home Meds: Home Meds Ketorolac [Toradol] 10 mg PO TID PRN 4 Days #12 tab 07/05/18 [Rx] Past Medical History - Past Health History Medical/Surgical History: Denies Medical/Surgical History Gastrointestinal History: Reports: Chronic Constipation [employer] History: Reports: Psychiatric History: Reports: Depression, Other (See Below) Other Psychiatric History: states she had been on an anti-depressant but had stopped taking that for awhile now - Past Surgical History HEENT Surgical History: Reports: Oral Surgery GI Surgical History: Reports: None Female Surgical History: Reports: Breast Implant, Other (See Below) Other Female Surgeries/Procedures: pt reports bilateral breast implants. per ct report rodney pt has the right breast implant that has ruptured. pt states has seen a plastic surgeon and needs to have removed however has not done yet. Social & Family History - Family History Family Medical History: Noncontributory - Tobacco Use Smoking Status *Q: Former Smoker Used Tobacco, but Quit: Yes Month/Year Tobacco Last Used: 2014 - Caffeine Use Caffeine Use: Reports: Coffee, Soda Other Caffeine Use: one cup of coffee every day and an occassional soda - Recreational Drug Use Recreational Drug Use: No - Living Situation & Occupation Living situation: Reports: , with Spouse, with Family (1 son) Occupation: Employed (clinical project assistant for property management) ED ROS GENERAL - Review of Systems Review Of Systems: See Below Constitutional: Denies: Fever, Chills HEENT: Reports: No Symptoms Respiratory: Reports: Shortness of Breath Cardiovascular: Reports: Chest Pain Endocrine: Reports: No Symptoms GI/Abdominal: Reports: No Symptoms : Reports: No Symptoms Musculoskeletal: Reports: Shoulder Pain (Left shoulder), Arm Pain (Left arm) Skin: Reports: No Symptoms Neurological: Reports: No Symptoms Psychiatric: Reports: No Symptoms Hematologic/Lymphatic: Reports: No Symptoms Immunologic: Reports: No Symptoms ED EXAM, GENERAL - Physical Exam Exam: See Below Exam Limited By: No Limitations General Appearance: Alert, WD/WN, No Apparent Distress Neck: Normal Inspection, Supple, Non-Tender, Full Range of Motion Respiratory/Chest: No Respiratory Distress, Lungs Clear, Normal Breath Sounds, Chest Non-Tender Cardiovascular: Normal Peripheral Pulses, Regular Rate, Rhythm, No Edema, No Gallop, No JVD, No Murmur, No Rub GI/Abdominal: Normal Bowel Sounds, Soft, Non-Tender, No Organomegaly, No Distention, No Abnormal Bruit, No Mass, Pelvis Stable Back Exam: Normal Inspection, Full Range of Motion Extremities: Normal Inspection, Normal Range of Motion, Non-Tender, No Pedal Edema, Normal Capillary Refill Neurological: Alert, Oriented Psychiatric: Normal Affect, Normal Mood Skin Exam: Warm, Dry, Intact, Normal Color, No Rash Lymphatic: No Adenopathy EKG INTERPRETATION EKG Date: 07/05/18 Time: 17:21 Rhythm: NSR Rate (Beats/Min): 73 Course - Vital Signs Last Recorded V/S: Last Vital Signs Temp 97.9 F 07/05/18 17:00 Pulse 84 07/05/18 17:00 Resp 23 H 07/05/18 17:00 BP 143/85 H 07/05/18 17:00 Pulse Ox 97 07/05/18 17:00 - Orders/Labs/Meds Orders: Active Orders 24 hr Category Date Time Status EKG Documentation Completion [RC] STAT Care 07/05/18 17:06 Active Chest 2V [CR] Stat Exams 07/05/18 17:06 Taken Labs: Laboratory Tests 07/05/18 07/05/18 07/05/18 Range/Units 17:30 17:30 17:30 WBC 5.63 (3.98-10.04) K/mm3 RBC 4.57 (3.98-5.22) M/mm3 Hgb 14.5 (11.2-15.7) gm/L Hct 42.7 (34.1-44.9) % MCV 93.4 (79.4-94.8) fl MCH 31.7 (25.6-32.2) pg MCHC 34.0 (32.2-35.5) g/dl RDW Std Deviation 43.0 (36.4-46.3) fL Plt Count 268 (182-369) K/mm3 MPV 10.6 (9.4-12.3) fl Neut % (Auto) 53.0 (34.0-71.1) % Lymph % (Auto) 35.3 (19.3-51.7) % [place] % (Auto) 8.5 (4.7-12.5) % Eos % (Auto) 2.7 (0.7-5.8) Baso % (Auto) 0.5 (0.1-1.2) % Neut # (Auto) 2.98 (1.56-6.13) K/mm3 Lymph # (Auto) 1.99 (1.18-3.74) K/mm3 [place] # (Auto) 0.48 H (0.24-0.36) K/mm3 Eos # (Auto) 0.15 (0.04-0.36) K/mm3 Baso # (Auto) 0.03 (0.01-0.08) K/mm3 D-Dimer, Quantitative < 0.19 L (0.19-0.50) mg/L Sodium 141 (136-145) mEq/L Potassium 3.7 (3.5-5.1) mEq/L Chloride 104 (98-107) mEq/L Carbon Dioxide 26 (21-32) mEq/L Anion Gap 14.7 (5-15) BUN 24 H (7-18) mg/dL Creatinine 0.8 (0.55-1.02) mg/dL Est Cr Clr Drug Dosing 77.01 mL/min Estimated GFR (MDRD) > 60 (>60) mL/min BUN/Creatinine Ratio 30.0 H (14-18) Glucose 104 (74-106) mg/dL Calcium 9.6 (8.5-10.1) mg/dL Total Bilirubin 0.4 (0.2-1.0) mg/dL AST 18 (15-37) U/L ALT 32 (14-59) U/L Alkaline Phosphatase 82 (46-116) U/L Troponin I < 0.017 (0.00-0.056) ng/mL Total Protein 7.3 (6.4-8.2) g/dl Albumin 3.9 (3.4-5.0) g/dl Globulin 3.4 gm/dL Albumin/Globulin Ratio 1.2 (1-2) Meds: Medications Discontinued Medications Generic Name Dose Route Start Last Admin Trade Name Freq PRN Reason Stop Dose Admin Ketorolac Tromethamine 60 mg 07/05/18 18:34 07/05/18 18:54 Toradol IM 07/05/18 18:35 60 mg ONETIME ONE Administration - Re-Assessments/Exams Free Text/Narrative Re-Assessment/Exam: 07/05/18 17:55 EKG reveals NSR, labs pending. WBC 5.63 RBC 4.57 hemoglobin 14.5 hematocrit 42.7 07/05/18 18:33 D-dimer is 0.19, sodium 141 potassium 3.7 chloride 104 CO2 20 6UN 24 creatinine 0.8 glucose 104 calcium 9.6 AST 18 ALT 32 alkaline phosphatase 82 troponin 0.017. I will medicate with Toradol for pain. 07/05/181854 States she is feeling better. 07/05/181919 chest x-ray reveals no acute findings. I feel her pain is probably muscular skeletal in nature. I will discharge home with Toradol. I instructed her not to take Ibuprofen, Aleve, Naprosyn. I instructed her to follow up with her PCP. Instructed to return to the ER for any new or acute worsening symptoms. Patient verbalized understanding and is comfortable plan for discharge. Departure - Departure Time of Disposition: 19:24 Disposition: Home, Self-Care 01 Condition: Good Clinical Impression: Atypical chest pain, Muscle strain Prescriptions: Ketorolac [Toradol] 10 mg PO TID PRN 4 Days #12 tab PRN Reason: muscle strain Instructions: Chest Wall Pain Referrals: PCP,None [Primary Care Provider] - Forms: ED Department Discharge Additional Instructions: You have had been diagnosed with atypical chest pain. Your EKG revealed no irregular beats no irregularity. Your chest x-ray was unremarkable. Your lab studies showed no acute findings other than you are slightly dehydrated. I recommend that she increase her fluid intake. I feel your pain is musculoskeletal in nature, therefore I will discharge home with Toradol. Do not take this medication and take Aleve, Motrin, ibuprofen or naproxen or NSAIDS. Follow-up with your PCP. Return to the emergency room for any new or acutely worsening symptoms. - My Orders Last 24 Hours: My Active Orders 07/05/18 17:06 EKG Documentation Completion [RC] STAT Chest 2V [CR] Stat - Assessment/Plan Last 24 Hours: My Active Orders 07/05/18 17:06 EKG Documentation Completion [RC] STAT Chest 2V [CR] Stat
[2018-07-05] MEDS ORDERED: Ketorolac 30 MG/ML SDV IM ONE (18:34)
--- NOTE | 2018-07-06 07:15 | CR ---
Chest: Two views of the chest were obtained. Comparison: No prior chest imaging is available. Minimal atelectasis is seen within the lateral left costophrenic angle. Lungs otherwise are clear. Heart size is normal. Mild tortuosity of the thoracic aorta is seen. Minimal degenerative change is seen within the spine. Impression: 1. Incidental findings. Nothing acute is seen. Diagnostic code #2
== END 2018-07-05 19:34 | disposition home or self-care (01) ==
LOC: JD.ED 16:52
DX: S29.011A Strain of muscle and tendon of front wall of thorax, initial encounter (principal); Z87.891 Personal history of nicotine dependence; Z79.899 Other long term (current) drug therapy; X58.XXXA Exposure to other specified factors, initial encounter
CPT/HCPCS: 36415; 71046; 80053; 84484; 85025; 85379; 93005; 96372; 99285; J1885; 93010; 99284